=== PATIENT | male | born 1965 | race Caucasian/White ===

== ENCOUNTER 2023-03-13 07:11 | Day surgery (SDC) | payer OTHER, SELFPAY ==
[2023-03-09 13:08] VITALS: BMI 31.4
[2023-03-13] VITALS (7 sets, daily range): BP systolic 124–152; BP diastolic 66–80; PULSE 52–63; RESP 18; TEMP 36.9–37; O2SAT 96–99
== END 2023-03-13 09:05 | disposition home or self-care (01) ==
PROVIDERS: PCP Nurse Practitioner Family; Visit Provider Ophthalmology
PROC: (CPT 66984; principal; 2023-03-13 08:30)
DX: H25.811 Combined forms of age-related cataract, right eye (principal)
CPT/HCPCS: 66984; V2632